=== PATIENT | female | born 1950 | race Caucasian/White ===

== ENCOUNTER → 2018-06-21 | Outpatient (CLI) | payer MEDICARE, OTHER ==
[~2018-06-21] MED LIST: IOHEXOL 100 ML; SOD CHLORIDE 0.9% 100 ML
[2018-06-21] MEDS: METOCLOPRAMIDE 10 MG INJ (11:15)
[2018-06-21] MEDS: METOPROLOL 5 MG INJ (11:25)
[2018-06-21] MEDS: NITROGLYCERIN AEROSOL (4.9 GM) (11:37)
== END | disposition home or self-care (01) ==
LOC: C/S 10:04
DX: R94.39 Abnormal result of other cardiovascular function study (principal)
CPT/HCPCS: 75571; 75574